=== PATIENT | female | born 1935 | race Asian ===

== ENCOUNTER 2016-09-18 18:26 | Outpatient (CLI) | payer MEDICARE, OTHER | END 2016-09-18 18:27 | disposition short-term general hospital (02) | LOC: EMS 18:26 | PROVIDERS: ATTEND Surgery | DX: M25.551 Pain in right hip (principal); R51 Headache; W18.39XA Other fall on same level, initial encounter; Y93.G3 Activity, cooking and baking; Y92.000 Kitchen of unspecified non-institutional (private) residence as the place of occurrence of the external cause | CPT/HCPCS: A0425; A0427 ==

== ENCOUNTER 2019-07-09 06:48 | Outpatient (CLI) | payer MEDICARE, OTHER | END 2019-07-09 06:49 | disposition short-term general hospital (02) | LOC: EMS 06:48 | PROVIDERS: ATTEND Surgery | DX: R53.1 Weakness (principal); R47.81 Slurred speech; R29.810 Facial weakness | CPT/HCPCS: A0425; A0429 ==

== ENCOUNTER 2019-08-11 17:25 | Outpatient (CLI) | payer MEDICARE, OTHER | END 2019-08-11 17:26 | disposition short-term general hospital (02) | LOC: EMS 17:25 | PROVIDERS: ATTEND Surgery | DX: R07.9 Chest pain, unspecified (principal); W01.0XXA Fall on same level from slipping, tripping and stumbling without subsequent striking against object, initial encounter; Y93.01 Activity, walking, marching and hiking; Y92.000 Kitchen of unspecified non-institutional (private) residence as the place of occurrence of the external cause | CPT/HCPCS: A0425; A0429 ==